=== PATIENT | female | born 1990 | race Caucasian/White ===

== ENCOUNTER 2018-08-27 21:47 | Emergency (ER) | payer MEDICAID ==
[~2018-08-27] VITALS: Ht 170.2 cm; Wt 87.1 kg
[2018-08-27 22:00] VITALS: BP 122/74
--- NOTE | 2018-08-27 22:03 | NUR ---
PT AMBULATED TO LOBBY. PROVIDING URINE.
[2018-08-27] MEDS ORDERED: NACL 0.9% 1,000 ML IV SCH (22:04)
--- NOTE | 2018-08-27 22:09 | NUR ---
TO ER BED 6
--- NOTE | 2018-08-27 22:17 | NUR ---
27 YO F BIB SELF PRESENTS TO ED C/O SHARP BILATERAL OVARY PAIN X 2 WEEKS. PT ALSO C/O FEET SWELLING AND CLEAR DISCHARGE FROM BELLY BUTTON ON AND OFF X 2 WEEKS. ALSO C/O URBANO X 2 DAYS. DENIES NVD, SOB, CP, FEVER. -- PT AWAKE, ALERT, CALM, COOPERATIVE. ANSWERS QUESTIONS APPROPRIATELY. BEHAVIOR AGE APPROPRIATE. -- SKIN PINK, WARM, DRY. BREATHING EVEN, UNLABORED. -- NO PEDAL EDEMA NOTED AT THIS TIME. PMH-- TUBAL LIGATION, SHINGLES, MENINGITIS- 2014 RX-- TYLENOL NEEDED
[2018-08-27 22:34] LABS: BASOPHILS # (AUTO) 0.1 K/uL (0.00-0.22); BASOPHILS % (AUTO) 0.6 % (0.0-2.0); EOSINOPHILS # (AUTO) 0.2 K/uL (0-0.4); EOSINOPHILS % (AUTO) 1.3 % (0.0-4.0); HEMATOCRIT 39.2 % (36-48); HEMOGLOBIN 12.8 g/dL (12.0-16.0); LYMPHOCYTES # (AUTO) 2.8 K/uL (2.5-16.5); LYMPHOCYTES % (AUTO) 22.5 % (20.5-51.1); MEAN CORPUSCULAR HEMOGLOBIN 27 pg (27-31); MEAN CORPUSCULAR HGB CONC 33 g/dL (33-37); MEAN CORPUSCULAR VOLUME 81.1 fL (80-94); MONOCYTES # (AUTO) 1.1 K/uL (0.8-1.0); MONOCYTES % (AUTO) 8.7 % (1.7-9.3); NEUTROPHILS # (AUTO) 8.2 K/uL (1.8-7.7); NEUTROPHILS % (AUTO) 66.9 % (42.2-75.2); PLATELET COUNT (AUTO) 451 K/uL (140-450); RED BLOOD CELL COUNT(AUTO) 4.83 MIL/uL (4.20-5.40); RED CELL DISTRIBUTION WIDTH 14.6 % (11.6-13.7); WHITE BLOOD COUNT (AUTO) 12.3 K/uL (4.8-10.8)
[2018-08-27 22:44] LABS: APPEARANCE,URINE SL CLOUDY (CLEAR); BILIRUBIN,URINE NEGATIVE (NEGATIVE); BLOOD, URINE TRACE-I (NEGATIVE); COLOR,URINE YELLOW (YELLOW); LEUKOCYTE ESTERASE ,URINE TRACE (NEGATIVE); NITRITE, URINE NEGATIVE (NEGATIVE); PH,URINE 7.5 (5.0-9.0); UGLUCOSE NEGATIVE (NEGATIVE)
[2018-08-27 22:46] LABS: ANION GAP 13.2 (8-16); CARBON DIOXIDE 27.5 mmol/L (21-32); CREATININE 0.6 mg/dL (0.6-1.3); POTASSIUM 3.7 mmol/L (3.5-5.1)
[2018-08-27 22:51] LABS: ALBUMIN 3.6 g/dL (3.4-5.0); TOTAL BILIRUBIN 0.2 mg/dL (0.0-1.0)
[2018-08-27 23:01] LABS: URINE AMORPHOUS URATE 4+ /HPF (None Seen)
--- NOTE | 2018-08-27 23:10 | NUR ---
PT TAKEN TO CT VIA WC.
--- NOTE | 2018-08-27 23:20 | NUR ---
PT RETURNED FROM CT.
[2018-08-28] MEDS ORDERED: MORPHINE SULFATE 4 MG/ML SYR IVP ONE (00:45)
[2018-08-28 01:25] VITALS: BP 104/61
== END 2018-08-28 01:25 | disposition home or self-care (01) ==
LOC: MED 21:47
DX: R10.30 Lower abdominal pain, unspecified (principal); R19.8 Other specified symptoms and signs involving the digestive system and abdomen; Z86.69 Personal history of other diseases of the nervous system and sense organs; Z98.51 Tubal ligation status
CPT/HCPCS: 36415; 74177; 80053; 81001; 83690; 85025; 87086; 96374; 99284; J2270; J7030; Q9967; 81025

== ENCOUNTER 2019-03-17 | Emergency (ER) | payer MEDICAID ==
[~2019-03-17] VITALS: Ht 170.2 cm; Wt 90.3 kg
[2019-03-17 00:20] VITALS: BP 120/80
[2019-03-17 02:09] VITALS: BP 120/80
== END 2019-03-17 02:10 | disposition home or self-care (01) ==
LOC: MED
DX: B34.9 Viral infection, unspecified (principal); F41.0 Panic disorder [episodic paroxysmal anxiety]
CPT/HCPCS: 71045; 87804; 99284; Q0092

== ENCOUNTER 2019-10-23 05:56 | Day surgery (SDC) | payer MEDICAID, SELFPAY ==
[2019-10-15 15:50] LABS: BASOPHILS % (AUTO) 0.4 % (0.0-2.0); EOSINOPHILS # (AUTO) 0.1 K/uL (0-0.4); EOSINOPHILS % (AUTO) 1.1 % (0.0-4.0); HEMOGLOBIN 13.4 g/dL (12.0-16.0); LYMPHOCYTES # (AUTO) 2.3 K/uL (2.5-16.5); LYMPHOCYTES % (AUTO) 24.1 % (20.5-51.1); MEAN CORPUSCULAR HEMOGLOBIN 26 pg (27-31); MEAN CORPUSCULAR HGB CONC 33 g/dL (33-37); MEAN CORPUSCULAR VOLUME 80.8 fL (80-94); MONOCYTES # (AUTO) 0.8 K/uL (0.8-1.0); MONOCYTES % (AUTO) 8.6 % (1.7-9.3); NEUTROPHILS # (AUTO) 6.2 K/uL (1.8-7.7); NEUTROPHILS % (AUTO) 65.8 % (42.2-75.2); PLATELET COUNT (AUTO) 466 K/uL (140-450); RED BLOOD CELL COUNT(AUTO) 5.08 MIL/uL (4.20-5.40); RED CELL DISTRIBUTION WIDTH 15.2 % (11.6-13.7); WHITE BLOOD COUNT (AUTO) 9.4 K/uL (4.8-10.8)
[2019-10-15 16:06] LABS: ALBUMIN 3.8 g/dL (3.4-5.0); ANION GAP 13.6 (8-16); CARBON DIOXIDE 26.2 mmol/L (21-32); CREATININE 0.6 mg/dL (0.6-1.3); POTASSIUM 3.8 mmol/L (3.5-5.1); TOTAL BILIRUBIN 0.3 mg/dL (0.0-1.0)
[~2019-10-23] VITALS: Ht 170.2 cm; Wt 93.4 kg
[2019-10-23] MEDS ORDERED: POTASSIUM IODIDE/IODINE 5% 14 ML BTL ONE (07:26)
[2019-10-23] MEDS ORDERED: KETOROLAC 30 MG/ML VIAL ONE (07:45)
[2019-10-23] MEDS ORDERED: DEXAMETHASONE 4 MG/ML VIAL ONE (07:45)
[2019-10-23] MEDS ORDERED: fentaNYL citrate 0.05 MG/ML VIAL ONE (07:45)
[2019-10-23] MEDS ORDERED: PROPOFOL 200 MG/20 ML VIAL IV ONE (07:45)
[2019-10-23] MEDS ORDERED: DESFLURANE 240 ML BTL INH ONE (07:45)
[2019-10-23] MEDS ORDERED: ONDANSETRON 4 MG/2 ML VIAL ONE (07:45)
== END 2019-10-23 10:00 | disposition home or self-care (01) ==
LOC: MDS 05:56 → MFCC 05:57 → MDS 10:00
PROVIDERS: ATTEND Obstetrics & Gynecology
DX: D06.9 Carcinoma in situ of cervix, unspecified (principal); Z20.828 Contact with and (suspected) exposure to other viral communicable diseases
CPT/HCPCS: 36415; 57522; 80053; 81025; 84703; 85025; 86886; 86900; 86901; J1100; J1885; J2405; J2704; J3010; U0003

== ENCOUNTER 2019-10-28 20:41 | Emergency (ER) | payer MEDICAID, SELFPAY ==
[~2019-10-28] VITALS: Ht 170.2 cm; Wt 93.4 kg
[2019-10-28 21:31] VITALS: BP 103/63
--- NOTE | 2019-10-28 21:34 | NUR ---
triaged and waiting in lobby Addendum: 10/28/19 at 2140 by [facility] waiting in tent.
--- NOTE | 2019-10-28 22:02 | NUR ---
AMBULATED TO ER BED 8
--- NOTE | 2019-10-28 22:26 | NUR ---
PT HAD A PARTIAL HYSTERECTOMY 10/22 HERE AT [facility], SHE DEVELOPED A LOW GRADE FEVER YESTERDAY AND IT WENT UP TO 101.8 TODAY AND SHE HAS A HEADACHE 10/28 AT THIS TIME. DENIES ABD PAIN, NO N/V/D, NO SOB OR COUGH, NO BODY ACHES. PT STATES SHE IS STILL HAVING BLACK/BLOODY DISCHARGE FROM HER VAGINA POST SURGERY. DENIES ANY ODOR TO DISCHARGE. BED IN LOWEST POSITION AND SIDERAIL UP X 1. NKA UTERINE CA
--- NOTE | 2019-10-28 22:27 | NUR ---
URINE AND BLOOD COLLECTED AND TAKEN TO LAB
[2019-10-28] MEDS ORDERED: ACETAMINOPHEN EXTRA STRENGTH 500 MG TAB PO ONE (22:45)
[2019-10-28] MEDS ORDERED: IBUPROFEN 600 MG TAB PO ONE (22:45)
[2019-10-28 22:48] LABS: BASOPHILS # (AUTO) 0.1 K/uL (0.00-0.22); BASOPHILS % (AUTO) 0.7 % (0.0-2.0); EOSINOPHILS # (AUTO) 0.1 K/uL (0-0.4); EOSINOPHILS % (AUTO) 0.5 % (0.0-4.0); HEMATOCRIT 41.7 % (36-48); HEMOGLOBIN 13.9 g/dL (12.0-16.0); LYMPHOCYTES # (AUTO) 2.3 K/uL (2.5-16.5); LYMPHOCYTES % (AUTO) 19.7 % (20.5-51.1); MEAN CORPUSCULAR HEMOGLOBIN 27 pg (27-31); MEAN CORPUSCULAR HGB CONC 33 g/dL (33-37); MEAN CORPUSCULAR VOLUME 80.9 fL (80-94); MONOCYTES # (AUTO) 1.4 K/uL (0.8-1.0); MONOCYTES % (AUTO) 11.5 % (1.7-9.3); NEUTROPHILS % (AUTO) 67.6 % (42.2-75.2); PLATELET COUNT (AUTO) 461 K/uL (140-450); RED BLOOD CELL COUNT(AUTO) 5.16 MIL/uL (4.20-5.40); RED CELL DISTRIBUTION WIDTH 15.4 % (11.6-13.7); WHITE BLOOD COUNT (AUTO) 11.9 K/uL (4.8-10.8)
[2019-10-28 22:55] LABS: APPEARANCE,URINE CLEAR (CLEAR); BILIRUBIN,URINE NEGATIVE (NEGATIVE); BLOOD, URINE 2+ (NEGATIVE); COLOR,URINE YELLOW (YELLOW); LEUKOCYTE ESTERASE ,URINE NEGATIVE (NEGATIVE); NITRITE, URINE NEGATIVE (NEGATIVE); UGLUCOSE NEGATIVE (NEGATIVE)
[2019-10-28 23:11] LABS: ALBUMIN 3.9 g/dL (3.4-5.0); ANION GAP 15.2 (8-16); CARBON DIOXIDE 26.6 mmol/L (21-32); CREATININE 0.8 mg/dL (0.6-1.3); POTASSIUM 3.8 mmol/L (3.5-5.1); TOTAL BILIRUBIN 0.3 mg/dL (0.0-1.0)
--- NOTE | 2019-10-28 23:20 | NUR ---
PT TAKEN TO CT VIA WHEELCHAIR
[2019-10-29 00:11] LABS: WBC,URINE 0-5 /HPF (0-5)
[2019-10-29] MEDS ORDERED: cefTRIAXone 1,000 MG in LIDOCAINE MPF 1% 2.1 ML IM ONE (00:25)
[2019-10-29] MEDS ORDERED: LIDOCAINE MPF 1% 5 ML ONE (00:31)
[2019-10-29] MEDS ORDERED: cefTRIAXone 1,000 MG VIAL ONE (00:31)
[2019-10-29 01:17] VITALS: BP 101/65
== END 2019-10-29 01:17 | disposition home or self-care (01) ==
LOC: MED 20:41
DX: N39.0 Urinary tract infection, site not specified (principal); R50.9 Fever, unspecified; Z85.9 Personal history of malignant neoplasm, unspecified
CPT/HCPCS: 36415; 74176; 80053; 81001; 83690; 85025; 87086; 96372; 99284; J0696; J2001

== ENCOUNTER 2019-12-21 02:38 | Emergency (ER) | payer MEDICAID, SELFPAY ==
[~2019-12-21] VITALS: Ht 170.2 cm; Wt 96.2 kg
[2019-12-21 02:54] VITALS: BP 152/85
[2019-12-21] MEDS ORDERED: LIDOCAINE MPF 1% 5 ML ONE (03:20)
[2019-12-21] MEDS ORDERED: HYDROcodone/APAP 5/325 MG 1 TAB TAB PO ONE (03:20)
[2019-12-21] MEDS ORDERED: LIDOCAINE MPF 1% 10 MG/ML VIAL INJ ONE (03:20)
[2019-12-21 03:50] VITALS: BP 152/85
== END 2019-12-21 03:50 | disposition home or self-care (01) ==
LOC: MED 02:38
DX: K08.89 Other specified disorders of teeth and supporting structures (principal); Z85.42 Personal history of malignant neoplasm of other parts of uterus
CPT/HCPCS: 99283; J2001

== ENCOUNTER 2020-02-28 23:01 | Emergency (ER) | payer MEDICAID ==
[~2020-02-28] VITALS: Ht 170.2 cm; Wt 93.9 kg
[2020-02-28 23:47] VITALS: BP 120/70
--- NOTE | 2020-02-28 23:50 | NUR ---
TO LOBBY A/W BED AMBULATORY
[2020-02-29 00:08] VITALS: BP 120/70
--- NOTE | 2020-02-29 00:08 | NUR ---
Patient discharged with v/s stable. Written and verbal after care instructions given and explained. Patient alert, oriented and verbalized understanding of instructions. Ambulatory with steady gait. All questions addressed prior to discharge. ID band removed. Patient advised to follow up with PMD. Rx of HYDROXYZINE given. Patient educated on indication of medication including possible reaction and side effects. Opportunity to ask questions provided and answered.
== END 2020-02-29 00:08 | disposition home or self-care (01) ==
LOC: MED 23:01
DX: F41.9 Anxiety disorder, unspecified (principal); R20.2 Paresthesia of skin
CPT/HCPCS: 99283

== ENCOUNTER 2020-12-01 22:24 | Emergency (ER) | payer MEDICAID ==
[~2020-12-01] VITALS: Ht 170.2 cm; Wt 87.2 kg
[2020-12-01 22:40] VITALS: BP 114/70
--- NOTE | 2020-12-01 22:43 | NUR ---
TO LOBBY A/W BED AMBULATORY
--- NOTE | 2020-12-02 00:55 | NUR ---
PER ADMITTING, PT NO LONGER WANTED TO WAIT TO BE SEEN AND LEFT.
== END 2020-12-02 00:55 | disposition left against medical advice (07) ==
LOC: MED 22:24
DX: R53.1 Weakness (principal); Z53.21 Procedure and treatment not carried out due to patient leaving prior to being seen by health care provider; Z85.42 Personal history of malignant neoplasm of other parts of uterus

== ENCOUNTER 2020-12-20 23:38 | Emergency (ER) | payer MEDICAID ==
[~2020-12-20] VITALS: Ht 170.2 cm; Wt 89.4 kg
[2020-12-20 23:40] VITALS: BP 148/87
--- NOTE | 2020-12-20 23:45 | NUR ---
PT TAKEN TO BED #12
[2020-12-20] MEDS ORDERED: LIDOCAINE MPF 1% 10 MG/ML VIAL INJ ONE (23:55)
--- NOTE | 2020-12-21 | NUR ---
COVERING PRIMARY RN FOR LUNCH RELIEF. SEE COMPLETE ASSESSMENT
[2020-12-21] MEDS ORDERED: SULF-59 PO (01:01)
[2020-12-21 01:10] VITALS: BP 148/87
== END 2020-12-21 01:10 | disposition home or self-care (01) ==
LOC: MED 23:38
DX: H00.034 Abscess of left upper eyelid (principal); Z79.899 Other long term (current) drug therapy; Z85.42 Personal history of malignant neoplasm of other parts of uterus; Z98.890 Other specified postprocedural states
CPT/HCPCS: 10060; 99283; J2001

== ENCOUNTER 2020-12-22 20:45 | Emergency (ER) | payer MEDICAID ==
[~2020-12-22] VITALS: Ht 170.2 cm; Wt 86.6 kg
[~2020-12-22 20:45] MED LIST: SULF-59 PO
[2020-12-22 21:32] VITALS: BP 134/75
--- NOTE | 2020-12-22 21:37 | NUR ---
PATIENT SENT TO LOBBY
[2020-12-22] MEDS ORDERED: BACITRACIN OINT 500 UNITS/GM PKT TP ONE (22:45)
[2020-12-22 23:09] VITALS: BP 134/75
--- NOTE | 2020-12-22 23:09 | NUR ---
Patient discharged with v/s stable. Written and verbal after care instructions given and explained. Patient verbalized understanding. Ambulatory with steady gait. All questions addressed prior to discharge. Advised to follow up with PMD.
== END 2020-12-22 23:09 | disposition home or self-care (01) ==
LOC: MED 20:45
DX: L02.01 Cutaneous abscess of face (principal); Z48.00 Encounter for change or removal of nonsurgical wound dressing
CPT/HCPCS: 99282

== ENCOUNTER 2021-03-22 15:34 | Emergency (ER) | payer MEDICAID ==
[~2021-03-22] VITALS: Ht 170.2 cm; Wt 84.4 kg
[2021-03-22 15:46] VITALS: BP 120/77
--- NOTE | 2021-03-22 15:59 | NUR ---
pt ambulated to bed 04 with even and steady gait
--- NOTE | 2021-03-22 16:05 | NUR ---
30 y/o female states she is 5 months post tummy tuck, had a leakage after the surgery at site and now states she has a bump that is developing filled with fluid. Upon assessment, pt has open wound below umbilicus, bump is no longer filled with fluid. Area is moist, pink and has redness around site. Lesion noted to surgical site 2cm, -redness -drainage. Bed locked in lowest position, side rails x 1. pmh: denies nka med: denies
--- NOTE | 2021-03-22 16:05 | NUR ---
Dr. Poe is evaluating pt at bedside
[2021-03-22] MEDS ORDERED: CLIN300C52 PO (16:12)
--- NOTE | 2021-03-22 16:18 | NUR ---
Patient discharged with v/s stable. Written and verbal after care instructions given and explained. Patient alert, oriented and verbalized understanding of instructions. Ambulatory with steady gait. All questions addressed prior to discharge. ID band removed. Patient advised to follow up with PMD. Rx of Clindamycin Hcl given. Patient educated on indication of medication including possible reaction and side effects. Opportunity to ask questions provided and answered.
== END 2021-03-22 16:18 | disposition home or self-care (01) ==
LOC: MED 15:34
DX: L76.82 Other postprocedural complications of skin and subcutaneous tissue (principal); Z79.899 Other long term (current) drug therapy; Z98.890 Other specified postprocedural states
CPT/HCPCS: 99283

== ENCOUNTER 2021-06-16 13:15 | Emergency (ER) | payer MEDICAID ==
[~2021-06-16] VITALS: Ht 170.2 cm; Wt 81.6 kg
[~2021-06-16 13:15] MED LIST changes: +CLIN300C52 PO
[2021-06-16 13:31] VITALS: BP 133/75
--- NOTE | 2021-06-16 13:35 | NUR ---
PT AMBULATED TO BED STEADY GAIT
--- NOTE | 2021-06-16 13:47 | NUR ---
30 Y/O F BIB SELF C/O WOUND CHECK. PT STATES HAD TUMMY TUCK IN OCT 2020, HAD INFECTION TOOK ANTIBIOTICS AND RESOLVED. NOTICED ON SATURDAY BROWN MUCUS COMING FROM SITE. DENIES ANY PAIN. BROWN/YELLOW MUCOUS NOTED IN PATIENT BELLY REGION FROM SCAR. NO REDNESS/EDEMA NOTED. MEDHX: DENIES NKA
[2021-06-16] MEDS ORDERED: CLIN300C2 PO (13:53)
[2021-06-16 14:06] VITALS: BP 123/70
--- NOTE | 2021-06-16 14:06 | NUR ---
Patient discharged with v/s stable. Written and verbal after care instructions given and explained. Patient alert, oriented and verbalized understanding of instructions. Ambulatory with steady gait. All questions addressed prior to discharge. ID band removed. Patient advised to follow up with PMD. Rx of cleocin given. Patient educated on indication of medication including possible reaction and side effects. Opportunity to ask questions provided and answered.
== END 2021-06-16 14:06 | disposition home or self-care (01) ==
LOC: MED 13:15
DX: T81.49XA Infection following a procedure, other surgical site, initial encounter (principal); Z98.890 Other specified postprocedural states; Z79.2 Long term (current) use of antibiotics; Y84.8 Other medical procedures as the cause of abnormal reaction of the patient, or of later complication, without mention of misadventure at the time of the procedure
CPT/HCPCS: 99283